=== PATIENT | female | born 1970 | race Caucasian/White ===

== ENCOUNTER → 2023-07-11 | Outpatient (CLI) | payer OTHER ==
[2023-07-11 15:03] LABS: Basophils # (A) 0.04 X 10*3/uL (0.00-0.10); Basophils % (A) 0.7 %; Eosinophils % (A) 3.6 %; HCT 41.6 % (37.2-46.3); HGB 13.8 g/dL (12.0-15.0); Lymphocytes # (A) 2.04 X 10*3/uL (0.90-5.00); Lymphocytes % (A) 36.4 %; MCH 31.1 pg (27.0-32.0); MCHC 33.2 g/dL (32.0-37.0); MCV 93.7 FL (80.0-97.0); Mean Platelet Volume 10.3 FL (9.5-12.2); Monocytes # (A) 0.33 X 10*3/uL (0.20-1.00); Monocytes % (A) 5.9 %; NRBC Per 100 WBC 0 X 10*3/uL (0.00-0.01); Neutrophils # (A) 2.99 X 10*3/uL (1.80-7.70); Neutrophils % (A) 53.2 %; Platelet Count 280 X 10*3/uL (140-440); RBC 4.44 X 10*6/uL (4.10-5.20); RDW 12.1 % (11.5-14.5); WBC 5.61 X 10*3/uL (4.50-10.00)
[2023-07-11 15:47] LABS: BUN/Creat Ratio 19.71 Ratio (12.00-20.00); Blood Urea Nitrogen 13.8 mg/dL (9.0-27.0); Calcium 9.8 mg/dL (8.7-10.3); Carbon Dioxide 27.6 mmol/L (21.6-31.8); Chloride 104 mmol/L (96-109); Glucose 96 mg/dL (70-110); Potassium 4.2 mmol/L (3.5-5.5); Sodium 143 mmol/L (135-145)
== END | disposition home or self-care (01) ==
LOC: LABPAT 10:34
PROVIDERS: ATTEND Urology
DX: Z01.812 Encounter for preprocedural laboratory examination (principal); N20.1 Calculus of ureter; R31.9 Hematuria, unspecified
CPT/HCPCS: 80048; 85025

== ENCOUNTER → 2023-07-16 | Day surgery (SDC) | payer OTHER ==
--- NOTE | 2023-07-12 12:33 | P.HPIHPCON ---
History of Present Illness H&P Date: 07/12/23 Chief Complaint: Left ureteral stone This is a 53-year-old female with history of a 7 mm left-sided UPJ stone, she is symptomatic from her stone. Option for left-sided ureteroscopy with holmium laser versus ESWL was discussed with her in detail. She agreed to proceed with left-sided ureteroscopy with holmium laser. Aware of the risks which includes but not limited to bleeding, infection, injury to the ureter. Risk of anesthesia was discussed. Consent for Procedure: I have explained the operation/procedure to the patient, including the risks, benefits, side effects, alternative therapies (including not receiving the proposed treatment or service), the likelihood of the patient achieving his/her goals, and potential recuperation problems for the procedure/sedation/analgesia, as well as any blood products, if indicated. I also explained to the patient the risks, benefits and side effects of the alternatives, as well as the risks related to not receiving the proposed procedure, care, treatment, or services. Past Medical History Additional Past Medical History / Comment(s): RENAL CALCULI X2 . History of Any Multi-Drug Resistant Organisms: None Reported Past Surgical History: Bariatric Surgery, Tubal Ligation Additional Past Surgical History / Comment(s): 2021 GASTRIC BYPASS. Past Anesthesia/Blood Transfusion Reactions: No Reported Reaction Past Psychological History: ADD/ADHD, Anxiety, Depression Smoking Status: Never smoker Past Alcohol Use History: None Reported Past Drug Use History: None Reported - Past Family History Mother Family Medical History: No Reported History Medications and Allergies Home Medications Medication Instructions Recorded Confirmed Type Acetaminophen [Tylenol 8 Hour] 650 mg PO Q8HR PRN 07/12/23 07/12/23 History Calcium Carbonate [Calcium] 600 mg PO DAILY 07/12/23 07/12/23 History Dextroamphetamine/Amphetamine 30 mg PO QAM 07/12/23 07/12/23 History [Adderall Xr 30 mg Capsule] Ergocalciferol [Vitamin D2 (1250 1,250 mcg PO FR 07/12/23 07/12/23 History Mcg = 34688 Iu)] Ferrous Sulfate [Iron (65 MG 325 mg PO DAILY 07/12/23 07/12/23 History Elemental)] Multivitamins, Thera [Multivitamin 1 tab PO DAILY 07/12/23 07/12/23 History (formulary)] Omeprazole 20 mg PO DAILY PRN 07/12/23 07/12/23 History Super B With Ca 1 tab PO DAILY 07/12/23 History Venlafaxine HCl [Effexor XR] 150 mg PO QAM 07/12/23 07/12/23 History traZODone HCL 300 mg PO HS PRN 07/12/23 07/12/23 History Allergies Allergy/AdvReac Type Severity Reaction Status Date / Time No Known Allergies Allergy Verified 07/12/23 08:26 Surgical - Exam - General no distress, moderate pain - Eyes normal ocular movement, no pale - ENT normal nares, normal mucosa - Respiratory normal expansion, normal respiratory effort - Abdomen Abdomen: soft, non tender - Psychiatric oriented to time, oriented to person, oriented to place Assessment and Plan Assessment: OR for left-sided ureteroscopy, holmium laser lithotripsy, stone basketing and stent insertion
[~2023-07-16] MED LIST: DEXAMETHASONE SOD PHOSPHATE 4 MG/ML 1 ML VIAL IVP ONE; GLYCOPYRROLATE 0.2 MG/ML 2 ML VIAL ONE; HYDROmorphone 0.5 MG/0.5 ML SYRINGE IVP ONE; IOPAMIDOL-370 100ML BTL MISCELLANE ONE; KETOROLAC 15 MG/ML 1 ML VIAL IVP ONE; LACTATED RINGERS 1,000 ML IV ONE; LIDOCAINE 1% INJ 10MG/ML (20 ML MDV) ONE; MIDAZOLAM 2 MG/2 ML VIAL ONE; NEOSTIGMINE 1 MG/ML 10 ML VIAL ONE; ONDANSETRON 4 MG/2 ML VIAL IVP ONE; ONDANSETRON 4 MG/2 ML VIAL ONE; PROPOFOL 10 MG/ML 20 ML VIAL IV ONE; ROCURONIUM 10 MG/ML (5 ML VIAL) IV ONE; SUCCINYLCHOLINE CHLORIDE 200 MG/10 ML VIAL IV ONE; fentaNYL (PF) 50 MCG/ML 2 ML AMP ONE
--- NOTE | 2023-07-16 10:51 | XR ---
EXAMINATION TYPE: XR KUB DATE OF EXAM: 07/16/2023 10:47 AM CLINICAL INDICATION:Female, 53 years old with history of PRE-OP: LOCATION OF LEFT RENAL CALCULI; [facility] COMPARISON: None. TECHNIQUE: One radiographic view of the abdomen was obtained. FINDINGS: Left calcific density projecting of the renal pelvis measuring 13 x 7 mm. Suture scattered throughout the abdomen with surgical clips in the left upper quadrant right lower quadrant. The bowel gas pattern is nonspecific without dilated loops of small or large bowel. There is no evidence for o rganomegaly or pneumoperitoneum. The osseous structures are intact. No abnormal calcifications are present. Fecal material and gas are demonstrated throughout the colon and rectum. IMPRESSION: Calcific density near the left renal pelvis measuring up to 13 mm.
--- NOTE | 2023-07-16 13:22 | P.OP ---
Date of Procedure: 07/16/23 Preoperative Diagnosis: Left ureteral stone, bilateral hydronephrosis Postoperative Diagnosis: Same Procedure(s) Performed: Cystoscopy, right retrograde pyelogram, left ureteroscopy, holmium laser lithotripsy, stone basketing and stent insertion Implants: 6-Canadian by 24 cm stent in the left ureter Anesthesia: NIKA Surgeon: Derek Cruz Estimated Blood Loss (ml): 5 Pathology: other (left ureteral stone) Condition: stable Disposition: PACU Indications for Procedure: This is a 53-year-old female with history of a 7 mm left-sided UPJ stone, she is symptomatic from her stone. Option for left-sided ureteroscopy with holmium laser versus ESWL was discussed with her in detail. She agreed to proceed with left-sided ureteroscopy with holmium laser. On CT there was also evidence of right-sided mild hydronephrosis, discussed we will do a retrograde pyelogram to evaluate the hydronephrosis. Aware of the risks which includes but not limited to bleeding, infection, injury to the ureter. Risk of anesthesia was discussed. Operative Findings: Left-sided proximal ureteral stone, no evidence of hydronephrosis, filling defect on the right side Description of Procedure: Patient brought to the operating room, general anesthesia was induced. She was prepped and draped in sterile fashion and placed in dorsal lithotomy position. Cystoscopy fitted 21-Canadian sheath was inserted per urethra, cystoscopy was performed which showed no abnormality within the bladder. Attention was then carried to the right ureteral orifice which was intubated with a 6 Fr open- ended catheter, retrograde Polygram was performed on the right side which showed no filling defect or hydronephrosis, of note the course of the ureter was tortuous and there was some fullness to the renal pelvis but there was no evidence of hydronephrosis. Delayed images showed no evidence of obstruction. At this point attention was then carried to the left side, a sensor wire was advanced through the ureteroscope was advanced up into the left kidney. Next under fluoroscopy 1113 Canadian access sheath was passed over the wire into the proximal ureter. Next flexible ureteroscope was inserted through the access sheath, this point a large stone was encountered in the proximal ureter. Using the holmium laser the stone was dusted, sizable fragments were removed using stone basket. Repeat ureteroscopy and renoscopy showed no sizable stones or injury to the kidney or the ureter. Pullback ureteroscopy was performed which showed no injury to the ureter or any ureteral stones, as ureteroscope was withdrawn and a sensor wire was advanced through. Next a ureteral stent was passed over the wire, the proximal curl was visualized on fluoroscopy and the distal curl was visualized using cystoscope. The bladder was emptied at the end of the case. Patient tolerated procedure well and was taken to recovery in stable condition
[2023-07-16 13:50] VITALS: TEMP 97.2
--- NOTE | 2023-07-16 13:55 | FL ---
EXAMINATION TYPE: FL urography retrograde Intraoperative/procedural fluoroscopic services were provid ed. Total fluoroscopy time is 39 seconds with a total of 6 submitted images to PACS. Please see the o perative/procedural note for further details. DAP: [id number] mGym2
[2023-07-16 15:48] VITALS: BP 118/72; PULSE 48; RESP 12
== END ==
LOC: OR 10:17
PROVIDERS: ATTEND Urology
DX: N13.2 Hydronephrosis with renal and ureteral calculous obstruction (principal); F41.9 Anxiety disorder, unspecified; F32.A Depression, unspecified; Z79.51 Long term (current) use of inhaled steroids; Z79.899 Other long term (current) drug therapy; Z98.890 Other specified postprocedural states
CPT/HCPCS: 82365; 74420; 74018; 52356; C2625; C1894; C1758; C1769 ×3; J2250; J0330; J1100; J2710; J2405; J0690; J2001; J3010; J1885; J2704; J1170; Q9967

== ENCOUNTER 2023-07-19 13:37 | Emergency (ER) | payer OTHER ==
--- NOTE | 2023-07-19 13:40 | ED ---
General Adult HPI - General Stated complaint: Abd/Back pain-post Kidney Surgery Time Seen by Provider: 07/19/23 13:39 Source: RN notes reviewed - History of Present Illness Initial comments: 53-year-old female presents the emergency department with a chief complaint of generalized body pain. She reports that she had a lithotripsy procedure performed on Saturday07/16/[address] Cruz. Since then she Reports generalized body pains, nausea and vomiting. Is not been taking anything for his symptoms at home. She is requesting pain medication for his symptoms. She denies any known fevers or fatigue, cough or shortness of breath. She does have some blood in her urine with small clots. - Related Data Home Medications Medication Instructions Recorded Confirmed Acetaminophen [Tylenol 8 Hour] 650 mg PO Q8HR PRN 07/12/23 07/16/23 Calcium Carbonate [Calcium] 600 mg PO DAILY 07/12/23 07/16/23 Dextroamphetamine/Amphetamine 30 mg PO QAM 07/12/23 07/16/23 [Adderall Xr 30 mg Capsule] Ergocalciferol [Vitamin D2 (1250 1,250 mcg PO FR 07/12/23 07/16/23 Mcg = 64390 Iu)] Ferrous Sulfate [Iron (65 MG 325 mg PO DAILY 07/12/23 07/16/23 Elemental)] Multivitamins, Thera [Multivitamin 1 tab PO DAILY 07/12/23 07/16/23 (formulary)] Omeprazole 20 mg PO DAILY PRN 07/12/23 07/16/23 Super B With Ca 1 tab PO DAILY 07/12/23 Venlafaxine HCl [Effexor XR] 150 mg PO QAM 07/12/23 07/16/23 traZODone HCL 300 mg PO HS PRN 07/12/23 07/16/23 Previous Rx's Medication Instructions Recorded Cephalexin [Keflex] 500 mg PO Q8HR #15 cap 07/16/23 Ketorolac [Toradol] 10 mg PO Q6HR PRN #15 tab 07/16/23 Allergies Allergy/AdvReac Type Severity Reaction Status Date / Time No Known Allergies Allergy Verified 07/16/23 10:47 Review of Systems ROS Statement: Those systems with pertinent positive or pertinent negative responses have been documented in the HPI. ROS Other: All systems not noted in ROS Statement are negative. General Exam - General Exam Comments Initial Comments: Visual Physical Exam Vital signs reviewed General: Well-appearing, nontoxic, no acute distress. Head: Normocephalic, atraumatic Eyes: PERRLA, EOMI ENT: Airway patent Chest: Nonlabored breathing Skin: No visual rash, normal skin tone Neuro: Alert and oriented 3 Musculoskeletal: No gross abnormalities Course Vital Signs 07/19/23 07/19/23 13:41 16:29 Temperature 97.8 F Pulse Rate 91 76 Respiratory 18 17 Rate Blood Pressure 125/74 117/75 O2 Sat by Pulse 99 97 Oximetry - Reevaluation(s) Reevaluation #1: 07/19/23 15:13 Patient re-evaluated and still reports pain. Additional pain meds ordered. 07/19/23 16:30 patient reevaluated and updated on results. Patient reports symptomatically improvement status post medications. Agreeable with the plan for discharge. Medical Decision Making - Medical Decision Making I performed the quick note portion of this exam, verbal signature Genia Marshall PA-C Was pt. sent in by a medical professional or institution (KEYLA Gaitan, DEVELOPMENT WRITER, urgent care, hospital, or detention...) When possible be specific @ -[No] Did you speak to anyone other than the patient for history (EMS, parent, family, police, friend...)? What history was obtained from this source @ -[No] Did you review nursing and triage notes (agree or disagree)? Why? @ -[I reviewed and agree with nursing and triage notes] Were old charts reviewed (outside hosp., previous admission, EMS record, old EKG, old radiological studies, urgent care reports/EKG's, detention records)? Report findings @ -[No old charts were reviewed] Differential Diagnosis (chest pain, altered mental status, abdominal pain women, abdominal pain men, vaginal bleeding, weakness, fever, dyspnea, syncope, headache, dizziness, GI bleed, back pain, seizure, CVA, palpatations, mental health, musculoskeletal)? @ -[not applicable] EKG interpreted by me (3pts min.). @ -[As above] X-rays interpreted by me (1pt min.). @ -[None done] CT interpreted by me (1pt min.). @ -[None done] U/S interpreted by me (1pt. min.). @ To severe left hydronephrosis, distal end of left ureteral stent is visualized within the bladder mild hydronephrosis on the right What testing was considered but not performed or refused? (CT, X-rays, U/S, labs)? Why? @ -[None] What meds were considered but not given or refused? Why? @ -[None] Did you discuss the management of the patient with other professionals (professionals i.e. , PA, DEVELOPMENT WRITER, lab, RT, psych nurse, social service manager, health clinician, teacher, delinquency prevention officer, medical case manager)? Give summary @ -[No] Was smoking cessation discussed for >3mins.? @ -[No] Was critical care preformed (if so, how long)? @ -[No] Were there social determinants of health that impacted care today? How? (Homelessness, low income, unemployed, alcoholism, drug addiction, transportation, low edu. Level, literacy, decrease access to med. care, longterm, rehab)? @ -[No] Was there de-escalation of care discussed even if they declined (Discuss DNR or withdrawal of care, Hospice)? DNR status @ -[No] What co-morbidities impacted this encounter? (DM, HTN, Smoking, COPD, CAD, Cancer, CVA, ARF, Chemo, Hep., AIDS, mental health diagnosis, sleep apnea, mo rbid obesity)? @ -[None] Was patient admitted / discharged? Hospital course, mention meds given and route, prescriptions, significant lab abnormalities, going to OR and other pertinent info. @ Discharged. This is a 53-year-old female presents emergency department with generalized body pain. Patient had a thorough history and phy sical exam performed. Physical exam essentially unremarkable. Vital signs are stable. Heart rate regular rate and rhythm, lungs are to auscultation bilaterally. There is no marked CVA tenderness. Patient laboratory studies were essentially unremarkable. Ultrasound reveals left-sided ureteral stent with nonobstructive since millimeters stone. Her chart from 07/17/2023 was reviewed. She was provided morphine and IV fluids with symptomatic improvement. Return precautions were discussed at length. Discharged in stable condition. Case is discussed with Dr. Walker, ED attending who agrees with plan of care Undiagnosed new problem with uncertain prognosis? @ -[No] Drug Therapy requiring intensive monitoring for toxicity (Heparin, Nitro, Insulin, Cardizem)? @ -[No] Were any procedures done? @ -[No] Diagnosis/symptom? @ -Post-operative Pain Acute, or Chronic, or Acute on Chronic? @ -Acute Uncomplicated (without systemic symptoms) or Complicated (systemic symptoms)? @ -Uncomplicated Side effects of treatment? @ -[No] Exacerbation, Progression, or Severe Exacerbation? @ -[No] Poses a threat to life or bodily function? How? (Chest pain, USA, VT, pneumonia, PE, COPD, DKA, ARF, appy, cholecystitis, CVA, Diverticulitis, Homicidal, Suicidal, threat to staff... and all critical care pts) @ -Low likelihood - Lab Data Result diagrams: 07/19/23 13:55 07/19/23 13:55 Lab Results 07/19/23 07/19/23 07/19/23 Range/Units 13:55 13:55 13:55 WBC 10.0 (3.8-10.6) k/uL RBC 4.02 (3.80-5.40) m/uL Hgb 12.7 (11.4-16.0) gm/dL Hct 36.9 (34.0-46.0) % MCV 92.0 (80.0-100.0) fL MCH 31.5 (25.0-35.0) pg MCHC 34.3 (31.0-37.0) g/dL RDW 12.0 (11.5-15.5) % Plt Count 210 (150-450) k/uL MPV 7.8 Neutrophils % 69 % Lymphocytes % 20 % Monocytes % 5 % Eosinophils % 4 % Basophils % 0 % Neutrophils # 6.9 (1.3-7.7) k/uL Lymphocytes # 2.0 (1.0-4.8) k/uL Monocytes # 0.5 (0-1.0) k/uL Eosinophils # 0.4 (0-0.7) k/uL Basophils # 0.0 (0-0.2) k/uL PT 10.4 (10.0-12.5) sec INR 0.9 (<1.2) APTT 25.1 (22.0-30.0) sec Sodium 136 L (137-145) mmol/L Potassium 5.0 (3.5-5.1) mmol/L Chloride 102 (98-107) mmol/L Carbon Dioxide 26 (22-30) mmol/L Anion Gap 8 mmol/L BUN 20 H (7-17) mg/dL Creatinine 0.64 (0.52-1.04) mg/dL Est GFR (CKD-EPI)AfAm >90 (>60 ml/min/1.73 sqM) Est GFR (CKD-EPI)NonAf >90 (>60 ml/min/1.73 sqM) Glucose 93 (74-99) mg/dL Calcium 8.9 (8.4-10.2) mg/dL Total Bilirubin 0.3 (0.2-1.3) mg/dL AST 49 H (14-36) U/L ALT 51 H (4-34) U/L Alkaline Phosphatase 56 (38-126) U/L Total Protein 5.7 L (6.3-8.2) g/dL Albumin 3.4 L (3.5-5.0) g/dL Urine Color Urine Appearance (Clear) Urine pH (5.0-8.0) Ur Specific [place] (1.001-1.035) Urine Protein (Negative) Urine Glucose (UA) (Negative) Urine Ketones (Negative) Urine Blood (Negative) Urine Nitrite (Negative) Urine Bilirubin (Negative) Urine Urobilinogen (<2.0) mg/dL Ur Leukocyte Esterase (Negative) Urine RBC (0-5) /hpf Urine WBC (0-5) /hpf Ur Squamous Epith Cells (0-4) /hpf Urine Mucus (None) /hpf 07/19/23 Range/Units 14:57 WBC (3.8-10.6) k/uL RBC (3.80-5.40) m/uL Hgb (11.4-16.0) gm/dL Hct (34.0-46.0) % MCV (80.0-100.0) fL MCH (25.0-35.0) pg MCHC (31.0-37.0) g/dL RDW (11.5-15.5) % Plt Count (150-450) k/uL MPV Neutrophils % % Lymphocytes % % Monocytes % % Eosinophils % % Basophils % % Neutrophils # (1.3-7.7) k/uL Lymphocytes # (1.0-4.8) k/uL Monocytes # (0-1.0) k/uL Eosinophils # (0-0.7) k/uL Basophils # (0-0.2) k/uL PT (10.0-12.5) sec INR (<1.2) APTT (22.0-30.0) sec Sodium (137-145) mmol/L Potassium (3.5-5.1) mmol/L Chloride (98-107) mmol/L Carbon Dioxide (22-30) mmol/L Anion Gap mmol/L BUN (7-17) mg/dL Creatinine (0.52-1.04) mg/dL Est GFR (CKD-EPI)AfAm (>60 ml/min/1.73 sqM) Est GFR (CKD-EPI)NonAf (>60 ml/min/1.73 sqM) Glucose (74-99) mg/dL Calcium (8.4-10.2) mg/dL Total Bilirubin (0.2-1.3) mg/dL AST (14-36) U/L ALT (4-34) U/L Alkaline Phosphatase (38-126) U/L Total Protein (6.3-8.2) g/dL Albumin (3.5-5.0) g/dL Urine Color Light Yellow Urine Appearance Cloudy H (Clear) Urine pH 7.0 (5.0-8.0) Ur Specific [place] 1.012 (1.001-1.035) Urine Protein Negative (Negative) Urine Glucose (UA) Negative (Negative) Urine Ketones Negative (Negative) Urine Blood Large H (Negative) Urine Nitrite Negative (Negative) Urine Bilirubin Negative (Negative) Urine Urobilinogen <2.0 (<2.0) mg/dL Ur Leukocyte Esterase Large H (Negative) Urine RBC >182 H (0-5) /hpf Urine WBC 49 H (0-5) /hpf Ur Squamous Epith Cells 1 (0-4) /hpf Urine Mucus Rare H (None) /hpf Disposition Clinical Impression: Post-op pain Disposition: HOME SELF-CARE Condition: Stable Instructions (If sedation given, give patient instructions): Lithotripsy (DC) Additional Instructions: Please monitor your symptoms closely Please follow up with Dr. Cruz or associate within 1-2 days Please return to the emergency department if worsening symptoms Is patient prescribed a controlled substance at d/c from ED?: No Referrals: Lisa Read MD [Primary Care Provider] - 1-2 days Derek Cruz MD [STAFF PHYSICIAN] - 1-2 days Zoltan Whitehead MD [STAFF PHYSICIAN] - 1-2 days Time of Disposition: 16:01
[2023-07-19] MEDS ORDERED: SODIUM CHLORIDE 0.9% 1,000 ML IV ONE (13:54)
[2023-07-19] MEDS ORDERED: KETOROLAC 15 MG/ML 1 ML VIAL IVP STA (13:55)
[2023-07-19] MEDS ORDERED: MORPHINE SULFATE 4 MG/ML SYRINGE IVP STA ×2 (13:55→15:14)
[2023-07-19 14:00] VITALS: TEMP 97.8
[2023-07-19] MEDS ORDERED: METOCLOPRAMIDE 5 MG/ML 2 ML VIAL IVP STA (14:02)
[2023-07-19] MEDS ORDERED: ONDANSETRON 4 MG/2 ML VIAL IVP STA (14:02)
[2023-07-19 14:13] LABS: Basophils % (A) 0 %; Eosinophils # (A) 0.4 k/uL (0-0.7); Eosinophils % (A) 4 %; HCT 36.9 % (34.0-46.0); HGB 12.7 gm/dL (11.4-16.0); Lymphocytes % (A) 20 %; MCH 31.5 pg (25.0-35.0); MCHC 34.3 g/dL (31.0-37.0); Mean Platelet Volume 7.8; Monocytes # (A) 0.5 k/uL (0-1.0); Monocytes % (A) 5 %; Neutrophils # (A) 6.9 k/uL (1.3-7.7); Neutrophils % (A) 69 %; Platelet Count 210 k/uL (150-450); RBC 4.02 m/uL (3.80-5.40)
[2023-07-19 14:16] LABS: INR 0.9 (<1.2); Partial Thromboplastin Time 25.1 sec (22.0-30.0); Prothrombin Time 10.4 sec (10.0-12.5)
--- NOTE | 2023-07-19 14:56 | US ---
EXAMINATION TYPE: US kidneys/renal and bladder DATE OF EXAM: 07/19/2023 COMPARISON: XR 07/16/2023 CLINICAL INDICATION: Female, 53 years old with history of Pain; Pain left side since procedure on . EXAM MEASUREMENTS: Right Kidney: 11.5 x 5.2 x 5.1 cm Left Kidney: 13.4 x 5.3 x 7.6 cm Right Kidney: Mild hydronephrosis. Left Kidney: Asymmetrically larger.Moderate to severe hydronephrosis. Nonobstructive 6 mm mid pole renal calculus. Bladder: Appears wnl Bilateral Jets seen: Only right jet seen, distal looped end of the left ureteral stent visualized w ithin the bladder. IMPRESSION: 1. Moderate to severe left hydronephrosis. The distal looped end of a left ureteral stent is visualiz ed within the bladder. 2. Mild hydronephrosis on the right.
[2023-07-19 15:20] LABS: Appearance,Urine Cloudy (Clear); Bilirubin,Urine Negative (Negative); Blood,Urine Large (Negative); Color,Urine Light Yellow; Glucose,Urine (UA) Negative (Negative); Ketones,Urine Negative (Negative); Leukocyte Esterase,Urine Large (Negative); Mucus,Urine Rare /hpf; Nitrite,Urine Negative (Negative); Protein,Urine Negative (Negative); RBC,Urine >182 /hpf (0-5); Specific Gravity,Urine 1.012 (1.001-1.035); Squamous Epithelial Cell,Urine 1 /hpf (0-4); Urobilinogen,Urine <2.0 mg/dL (<2.0); WBC,Urine 49 /hpf (0-5)
[2023-07-19 15:28] LABS: ALT 51 U/L (4-34); AST 49 U/L (14-36); African American GFR (CKD) >90 (>60 ml/min/1.73 sqM); Albumin 3.4 g/dL (3.5-5.0); Alkaline Phosphatase 56 U/L (38-126); Anion Gap 8 mmol/L; Blood Urea Nitrogen 20 mg/dL (7-17); Calcium 8.9 mg/dL (8.4-10.2); Carbon Dioxide 26 mmol/L (22-30); Chloride 102 mmol/L (98-107); Glucose 93 mg/dL (74-99); Non-African American GFR(CKD) >90 (>60 ml/min/1.73 sqM); Sodium 136 mmol/L (137-145); Total Bilirubin 0.3 mg/dL (0.2-1.3); Total Protein 5.7 g/dL (6.3-8.2)
[2023-07-19] MEDS ORDERED: ACET/COD 300 MG/30 MG STARTER PACK 6 TAB BTL PO STA (16:00)
[2023-07-19 16:43] VITALS: BP 117/75; PULSE 76; RESP 17
== END 2023-07-19 16:30 | disposition home or self-care (01) ==
LOC: EC 13:37
DX: G89.18 Other acute postprocedural pain (principal); N13.2 Hydronephrosis with renal and ureteral calculous obstruction
CPT/HCPCS: 36415; 80053; 85025; 85610; 85730; 81001; 76770; 99284; 96374; 96375 ×2; 96376; 96361; J2270; J2405; J1885